=== PATIENT | female | born 1955 | race Caucasian/White ===

== ENCOUNTER → 2019-11-07 09:45 | Outpatient (CLI) | payer MEDICARE, SELFPAY ==
--- NOTE | 2019-11-07 10:19 | DI.MG.S_ITS ---
Patient Name: HELLEN KERNS date: 1955 Sex: F Attending Physician: Sloan Indications: Date: 11/07/2019 10:12 At the request of: JUDY DUBOSE Procedure: MM screening mammo implant BI BILATERAL DIGITAL SCREENING MAMMOGRAM 3D/2D WITH CAD WITH AUGMENTATION: 11/07/2019 CLINICAL: Routine screening. Comparison is made to exams dated: 05/28/2012 mammogram, 10/03/2008 mammogram, and 05/22/2004 mammogram - [facility]. The tissue of both breasts is predominantly fatty. Current study was also evaluated with a Computer Aided Detection (CAD) system. Bilateral breast implants are present. No significant masses, calcifications, or other findings are seen in either breast. There has been no significant interval change. IMPRESSION: There is no mammographic evidence of malignancy. A 1 year screening mammogram is recommended. This exam was interpreted at Station ID: [id number]. NOTE: For mammograms, a report in lay terms will be sent to the patient. Approximately 15% of breast malignancies will not be visualized mammographically. In the management of a palpable breast mass, a negative mammogram must not discourage biopsy of a clinically suspicious lesion. Electronically Signed By: Vincent Gibbs M.D., jr/myron:11/07/2019 10:32:19 letter sent: Normal Exam ACR BI-RADS Category 2: Benign Finding(s) [id number]
== END ==
PROVIDERS: PCP Internal Medicine; Referring Provider Internal Medicine; Visit Provider Internal Medicine
DX: Z12.31 Encounter for screening mammogram for malignant neoplasm of breast (principal); M85.88 Other specified disorders of bone density and structure, other site; Z78.0 Asymptomatic menopausal state
CPT/HCPCS: 77063; 77067; 77080

== ENCOUNTER 2020-05-28 10:38 | Emergency (ER) | payer MEDICARE, SELFPAY ==
[2020-05-28] VITALS (20 sets, daily range): BP systolic 144–215; BP diastolic 64–100; PULSE 62–86; RESP 10–45; TEMP 36.2; O2SAT 92–100
--- NOTE | 2020-05-28 11:01 | DI.RAD.S_ITS ---
PROCEDURE: XR CHEST 1V INDICATIONS: chest pain TECHNIQUE: One view of the chest was acquired. COMPARISON: [facility], , CHEST 1 VIEW, 07/13/2017, 16:10. FINDINGS: Surgical changes and devices: None. Lungs and pleura: Lungs are clear. No pleural effusions or pneumothorax. Mediastinum: Mediastinal contours appear normal. Heart size is normal. Bones and chest wall: No suspicious bony lesions. Overlying soft tissues appear unremarkable. IMPRESSION: No acute cardiopulmonary pathology. Dictated by: Derek Guzmna M.D. on 05/28/2020 at 11:35 Approved by: Derek Guzman M.D. on 05/28/2020 at 11:40
--- NOTE | 2020-05-28 11:02 | ED_ITS ---
HPI - Chest Pain General Chief Complaint: Hypertension Stated Complaint: 'heart issue' high blood pressure,jaw pain,anxiety Time Seen by Provider: 05/28/20 10:44 Source: patient Mode of arrival: Ambulatory Limitations: no limitations History of Present Illness HPI narrative: Patient is a 65-year-old female history of anxiety presenting with variety of complaints. She states she has had a slight headache which she describes as tightness around her head the last 3 days. She has been worried because she has taken her blood pressure 3 to 4 times a day for the last 3 days. The highest had was a systolic of 190 but it seems to be ranging around 160. She says she has done a lot of yoga meditation and drinking TS to help bring down her blood pressure and anxiety which is not seem to be helping. Her blood pressure remained elevated at home in the 160s so she came to the ED. She has very mild chest discomfort and he is having may be some right-sided weakness but also has some mild neck discomfort. She denies any fever chills or shortness of breath. Related Data Home Medications Medication Instructions Recorded Confirmed No Known Home Medications 05/28/20 05/28/20 Allergies Allergy/AdvReac Type Severity Reaction Status Date / Time ciprofloxacin [From Cipro] Allergy Unknown Verified 05/28/20 11:00 Review of Systems Review of Systems ROS Unobtainable: All systems reviewed & are unremarkable except as noted in HPI and below Constitutional Constitutional: Denies body ache(s), Denies chills, Denies fever(s), Denies frequent falls and Reports headache(s) ENT Ears, Nose, Mouth, and Throat: Reports headache(s) Cardiovascular Cardiovascular: Reports chest pain, Denies irregular heart rhythm, Denies lightheadedness, Denies palpitations, Denies dyspnea, Denies dyspnea on exertion and Denies orthopnea Respiratory Respiratory: Denies cough, Denies dyspnea, Denies dyspnea on exertion and Denies wheezing Gastrointestinal Gastrointestinal: Denies abdominal pain, Denies change in bowel habits, Denies diarrhea, Denies nausea and Denies vomiting Musculoskeletal Musculoskeletal: Denies back pain, Denies arthralgias and Denies joint swelling Integumentary/Breasts Skin/Breast: Denies pruritus, Denies erythema, Denies rash and Denies wounds Neurologic Neurologic: Denies frequent falls and Reports headache(s) Endocrine Endocrine: Denies palpitations Allergic/Immunologic Allergic/Immunologic: Denies wheezing Patient History Medical History Anxiety Heart palpitations Nephrolithiasis Social History Smoking Status: Never smoker Smoking Status: Never smoker alcohol intake frequency: 0-2 drinks per day Substance Use Type: marijuana Exam Initial Vital Signs Initial Vital Signs: Vital Signs Temperature 97.1 F L 05/28/20 10:40 Pulse Rate 75 05/28/20 10:40 Respiratory Rate 17 05/28/20 10:40 Blood Pressure 215/100 H 05/28/20 10:40 Pulse Oximetry 99 05/28/20 10:40 GENERAL: Well-appearing, well-nourished and in no acute distress. HEENT: Head atraumatic,EOMI, pupils reactive, face symmetric, moist mucous membranes CARDIOVASCULAR: Regular rate and rhythm without murmurs, rubs or gallops. RESPIRATORY: Breath sounds equal bilaterally, no wheezes rales or rhonchi. ABDOMEN: Soft, nontender. Normoactive bowel sounds all 4 quadrants. No guarding or rebound. EXTREMITIES: Normal range of motion, no clubbing or edema. Neurovascularly intact NEUROLOGICAL: Alert and oriented x4.Normal gait and speech. Cranial nerves II through XII grossly intact. Good [id number], good reru-pl-nyfn, strength equal bilaterally, no dysarthria or aphasia, sensation in tact to soft touch bilaterally, no visual changes, no facial droop SKIN: Warm, dry, no laceration, no petechiae, no rashes or lesions. Scores NIH Stroke Scale Level of Conciousness: Alert, keenly responsive Ask month/age: Answers both questions correctly. Open/close eyes, close hand: Performs both tasks correctly Best gaze horizontal: Normal Visual burt: No visual loss Facial palsy: Normal symetrical movement Left arm drift: No drift for full 10 sec Right arm drift: No drift for full 10 sec Left leg drift: No drift for full 5 sec Right leg drift: No drift for full 5 sec Limb ataxia: Absent Sensory on face/arms/legs: Normal, no sensory loss Best language: No aphasia, normal Dysarthria: Normal Extinction or inattention: No abnormality Total NIH Stroke scale score: 0 Course Orders Ordered: ED Orders 05/28/20 11:01 XR chest 1V Stat EKG-12 Lead Stat 05/28/20 11:43 CT head/brain wo con Stat 05/28/20 12:48 BNP [NT-proBNP (BNP-Adult 18+)] Stat Complete Blood Count AUTO DIFF Stat Comprehensive Metabolic Panel Stat Lipase Stat Magnesium Stat Troponin & CK Cardiac Panel Stat Vital Signs Vital signs: Vital Signs - 8 hr 05/28/20 10:40 05/28/20 10:59 05/28/20 11:00 Temperature 97.1 F L Pulse Rate 75 62 63 Respiratory Rate 17 25 H 24 Blood Pressure 215/100 H Pulse Oximetry 99 99 99 05/28/20 11:01 05/28/20 11:15 05/28/20 11:30 Temperature Pulse Rate 66 62 62 Respiratory Rate 30 H Blood Pressure 164/64 H 145/65 H Pulse Oximetry 100 99 99 05/28/20 11:35 05/28/20 11:46 05/28/20 12:00 Temperature Pulse Rate 63 64 80 Respiratory Rate Blood Pressure 191/74 H Pulse Oximetry 100 95 92 05/28/20 12:12 05/28/20 12:15 05/28/20 12:30 Temperature Pulse Rate 64 63 64 Respiratory Rate 23 10 L 37 H Blood Pressure 180/77 H 179/75 H Pulse Oximetry 100 99 99 05/28/20 12:45 05/28/20 12:53 05/28/20 13:00 Temperature Pulse Rate 86 64 62 Respiratory Rate 35 H 34 H 38 H Blood Pressure 194/77 H 177/74 H Pulse Oximetry 100 99 99 05/28/20 13:15 05/28/20 13:30 05/28/20 13:45 Temperature Pulse Rate 78 70 67 Respiratory Rate 45 H 24 30 H Blood Pressure 173/72 H 156/68 H 150/65 H Pulse Oximetry 99 99 99 05/28/20 14:00 05/28/20 14:30 Temperature Pulse Rate 74 Respiratory Rate 27 H Blood Pressure 144/65 H Pulse Oximetry 99 94 MDM - Chest Pain Lab Data Attestation: I reviewed the patient's lab results. Result diagrams: 05/28/20 12:48 05/28/20 12:48 Labs: Lab Results 05/28/20 05/28/20 Range/Units 12:48 12:48 WBC 10.4 (4.5-11.0) X10^3/uL RBC 4.86 (4.0-5.2) X10^6/uL Hgb 14.4 (12.0-16.0) g/dL Hct 44.6 (36-46) % MCV 91.7 (80-100) fL MCH 29.6 (26-34) PG MCHC 32.3 (30-36) % RDW 13.6 (11.6-14.8) % Plt Count 174 (150-400) X10^3/uL Neut % (Auto) 65.7 (50-75) % Lymph % (Auto) 22.2 L (25-40) % [place] % (Auto) 10.2 (3-14) % Eos % (Auto) 0.6 L (2-4) % Baso % (Auto) 1.3 (0-2) % Neut # (Auto) 6800 (1288-2061) /uL Lymph # (Auto) 2300 (9343-1844) /uL [place] # (Auto) 1100 H (0-900) /uL Eos # (Auto) 100 (0-450) /uL Baso # (Auto) 100 (0-100) /uL Sodium 139 (137-145) mmol/L Potassium 3.8 (3.4-5.1) mmol/L Chloride 105 (98-107) mmol/L Carbon Dioxide 28 (22-32) mmol/L BUN 19 H (7-17) mg/dL Creatinine 0.75 (0.52-1.04) mg/dL Estimated GFR > 60.0 (>60) mL/min BUN/Creatinine Ratio 25.3 H (6-22) Glucose 89 (80-110) mg/dL Calcium 9.6 (8.4-10.2) mg/dL Magnesium 2.0 (1.6-2.3) mg/dL Total Bilirubin 0.2 (0.2-1.3) mg/dL AST 32 (14-36) IU/L ALT 22 (<35) IU/L Alkaline Phosphatase 75 (38-126) U/L Total Creatine Kinase 48 (30-135) U/L CK-MB (CK-2) TNP CK-MB (CK-2) Rel Index TNP Troponin I < 0.012 (0.01-0.034) ng/mL NT-Pro-B Natriuret Pep 149 H (<125) pg/mL Total Protein 7.4 (6.3-8.2) g/dL Albumin 4.5 (3.5-5.0) g/dL Globulin 2.9 (1.7-4.1) g/dL Albumin/Globulin Ratio 1.6 (1.0-2.8) Lipase 258 (23-300) U/L Urine Dip Bedside Urine Glucose Negative Bedside Urine Bilirubin - Negative Bedside Urine Ketone - Negative Urine Specific [place] 1.010 Bedside Urine Occult Blood - Negative Bedside Urine pH 6.0 Bedside Urine Protein - Negative Bedside Urine Urobilinogen - Negative Bedside Urine Nitrite - Negative Bedside Urine Leukocytes - Negative Esterase Imaging Data CT scan - head: Radiologist's Impression: PROCEDURE: CT HEAD/BRAIN WO CON INDICATIONS: headache TECHNIQUE: Noncontrast 4.5 mm thick angled axial sections acquired from the foramen magnum to the vertex, with coronal and sagittal reformats. For radiation dose reduction, the following was used: automated exposure control, adjustment of mA and/or kV according to patient size. COMPARISON: None. FINDINGS: Image quality: Excellent. CSF spaces: Basal cisterns are patent. No extra-axial fluid collections. The ventricles are symmetric in size and shape. Brain: No acute intracranial hemorrhage or mass effect. Garcia-white matter differentiation is maintained. Skull and face: Calvarium and visualized facial bones appear intact, without suspicious lesions. Sinuses: Visualized sinuses and mastoids are clear. IMPRESSION: No acute intracranial abnormality. Dictated by: Dago Cortez M.D. on 05/28/2020 at 11:52 Chest x-ray: Radiologist's Impression: PROCEDURE: XR CHEST 1V INDICATIONS: chest pain TECHNIQUE: One view of the chest was acquired. COMPARISON: [facility], CHEST 1 VIEW, 07/13/2017, 16:10. FINDINGS: Surgical changes and devices: None. Lungs and pleura: Lungs are clear. No pleural effusions or pneumothorax. Mediastinum: Mediastinal contours appear normal. Heart size is normal. Bones and chest wall: No suspicious bony lesions. Overlying soft tissues appear unremarkable. IMPRESSION: No acute cardiopulmonary pathology. Dictated by: Derek Guzman M.D. on 05/28/2020 at 11:35 ECG Data Attestation: I personally reviewed and interpreted this ECG as follows: Prior ECG tracings: available for review Interpretation: Normal sinus rhythm rate 60 p.r. interval 126 QRS [address] changes or T-wave inversions PVC noted similar to previous EKG MDM Narrative Medical decision making narrative: Patient has variety of complaints. Blood pressure has improved significantly without any intervention. I recommend she take her blood pressure once a day. I do suspect that there is an anxiety component to all of this. She is neurologically intact head CT is negative at this time I recommend she follow up with his primary care provider in regards to blood pressure and anxiety. At this time no further recommendations from the emergency department Discharge Plan Departure Patient Disposition: Home Clinical Impression: Elevated blood pressure reading Instructions: DI for High Blood Pressure Activity Restrictions/Additional Instructions: *You have been diagnosed with elevated blood pressure *What to do: Please check her blood pressure once a day same time every day and write it down bring these numbers to your primary care provider. You may need to be started on blood pressure medication. *Continue to take medications as directed *Follow up with your primary care provider in 2-3 days *Return to ER if you should have worsening symptoms chest pain, headache, persistent vomiting, shortness of breath or any new, worsening or concerning symptoms Prescriptions: No Action No Known Home Medications RF: 0 Referrals: Ammy Lisa ARNP [Primary Care Provider] -
--- NOTE | 2020-05-28 11:43 | DI.CT.S_ITS ---
PROCEDURE: CT HEAD/BRAIN WO CON INDICATIONS: headache TECHNIQUE: Noncontrast 4.5 mm thick angled axial sections acquired from the foramen magnum to the vertex, with coronal and sagittal reformats. For radiation dose reduction, the following was used: automated exposure control, adjustment of mA and/or kV according to patient size. COMPARISON: None. FINDINGS: Image quality: Excellent. CSF spaces: Basal cisterns are patent. No extra-axial fluid collections. The ventricles are symmetric in size and shape. Brain: No acute intracranial hemorrhage or mass effect. Garcia-white matter differentiation is maintained. Skull and face: Calvarium and visualized facial bones appear intact, without suspicious lesions. Sinuses: Visualized sinuses and mastoids are clear. IMPRESSION: No acute intracranial abnormality. Dictated by: Dago Cortez M.D. on 05/28/2020 at 11:52 Approved by: Dago Cortez M.D. on 05/28/2020 at 11:55
--- NOTE | 2020-05-28 11:43 | PC.NURSE ---
2 rn have attempted (4 sticks) iv access without success.
--- NOTE | 2020-05-28 12:30 | PC.NURSE ---
lab in room attempting to obtain blood work.
[2020-05-28 13:06] LABS: Add Manual Diff / Slide Review NO; Basophils Absolute Auto 100 /uL (0-100); Basophils Percent Auto 1.3 % (0-2); Eosinophils Absolute Auto 100 /uL (0-450); Eosinophils Percent Auto 0.6 % (2-4); Hematocrit 44.6 % (36-46); Hemoglobin 14.4 g/dL (12.0-16.0); Lymphocytes Absolute Auto 2300 /uL (1100-4500); Lymphocytes Percent Auto 22.2 % (25-40); Mean Corpuscular HGB Conc 32.3 % (30-36); Mean Corpuscular Hemoglobin 29.6 PG (26-34); Mean Corpuscular Volume 91.7 fL (80-100); Monocytes Absolute Auto 1100 /uL (0-900); Monocytes Percent Auto 10.2 % (3-14); Neutrophils Absolute Auto 6800 /uL (1500-7000); Neutrophils Percent Auto 65.7 % (50-75); Red Blood Cell Count 4.86 X10^6/uL (4.0-5.2); Red Cell Distribution Width 13.6 % (11.6-14.8); White Blood Cell Count 10.4 X10^3/uL (4.5-11.0)
[2020-05-28 13:17] LABS: Alanine Aminotransferase 22 IU/L (<35); Albumin 4.5 g/dL (3.5-5.0); Albumin Globulin Ratio 1.6 (1.0-2.8); Alkaline Phosphatase 75 U/L (38-126); Aspartate Aminotransferase 32 IU/L (14-36); BUN Creatinine Ratio 25.3 (6-22); Bilirubin Total 0.2 mg/dL (0.2-1.3); Blood Urea Nitrogen 19 mg/dL (7-17); Calcium 9.6 mg/dL (8.4-10.2); Carbon Dioxide 28 mmol/L (22-32); Chloride 105 mmol/L (98-107); Creatine Kinase 48 U/L (30-135); Estimated Glomerular Filt Rate > 60.0 mL/min (>60); Globulin 2.9 g/dL (1.7-4.1); Glucose 89 mg/dL (80-110); Lipase 258 U/L (23-300); Potassium 3.8 mmol/L (3.4-5.1); Sodium 139 mmol/L (137-145); Total Protein 7.4 g/dL (6.3-8.2)
[2020-05-28 13:27] LABS: Platelet Count 174 X10^3/uL (150-400)
[2020-05-28 13:31] LABS: NT-proBNP (BNP-Adult 18+) 149 pg/mL (<125)
[2020-05-28 14:30] LABS: HEMOLYSIS 29 (0-50); Troponin I < 0.012 ng/mL (0.01-0.034)
== END 2020-05-28 15:00 | disposition home or self-care (01) ==
PROVIDERS: Emergency Provider Emergency Medicine; PCP Internal Medicine
DX: I10 Essential (primary) hypertension (principal); R07.9 Chest pain, unspecified; R51.9 Headache, unspecified; M54.2 Cervicalgia; R53.1 Weakness; F41.9 Anxiety disorder, unspecified
CPT/HCPCS: 36415; 70450; 71045; 80053; 81003; 82550; 83690; 83735; 83880; 84484; 85025; 93005; 99284

== ENCOUNTER → 2022-03-04 13:33 | Outpatient (CLI) | payer MEDICARE, SELFPAY | PROVIDERS: Family Provider Internal Medicine; PCP Internal Medicine; Referring Provider Internal Medicine; Visit Provider Internal Medicine ==

== ENCOUNTER → 2023-03-19 10:10 | Outpatient (CLI) | payer MEDICARE, SELFPAY ==
--- NOTE | 2023-03-19 | DI.RAD.S_ITS ---
Bone Density Report Name: HELLEN KERNS Age: 68 Sex: Female Ethnicity: White Date of : 1955 Indication: osteopenia; prior fracture; Referring Provider: JUDY DUBOSE Study: Bone densitometry was performed. Exam Date: March 19, 2023 Accession number: [id number] Bone Density: Region BMD T-score Z-score Classification AP Spine(L1-L4) 0.823 -2.0 0.0 Osteopenia Femoral Neck (Left) 0.657 -1.7 0.0 Osteopenia Total Hip (Left) 0.803 -1.1 0.3 Osteopenia Femoral Neck (Right) 0.687 -1.5 0.3 Osteopenia Total Hip (Right) 0.853 -0.7 0.7 Normal Total Hip Mean 0.828 -0.9 0.5 Normal World Health Organization criteria for BMD impression classify patients as: Normal (T-score at or above -1.0), Osteopenia (T-score between -1.0 and -2.5), or Osteoporosis (T-score at or below -2.5). 10-year Fracture Risk: FRAX not reported because: Prior hip or vertebral fracture Previous Exams: -- Region Exam Age BMD T-score BMD Change BMD Change Date g/cm2 vs Baseline vs Previous -- AP Spine (L1-L4) 03/19/2023 68 0.823 -2.0 -0.037 (-4.3%)# -0.037 (-4.3%)# 11/07/2019 64 0.860 -1.7 Total Hip(Left) 03/19/2023 68 0.803 -1.1 -0.013 (-1.6%)# -0.013 (-1.6%)# 11/07/2019 64 0.816 -1.0 Total Hip(Right) 03/19/2023 68 0.853 -0.7 0.022 (2.7%)# 0.022 (2.7%)# 11/07/2019 64 0.831 -0.9 -- *Denotes significance at 95% confidence level, LSC for AP Spine = 0.022 g/cm2, LSC for Total Hip = 0.027 g/cm2 # Denotes dissimilar scan types or analysis methods Impression: The patient has low bone mass, based on the Total Spine T-score. The patient has risk factors, including: previous fracture. No significant bone loss was observed. Discussion: INCREASED RISK OF FRACTURE DUE TO HISTORY OF FRACTURE. The patient's previous fracture puts the patient at high risk of a future fracture. In untreated patients, the risk of osteoporotic fracture increases approximately two-fold for each 1.0 SD decrease in T-score. Low bone density is not the only risk factor for fracture; also consider factors such as patient's age, frailty or poor health, risk of falling, risk of injury, previous osteoporotic fracture, family history of osteoporosis, cigarette smoking, low body weight, etc. Not everyone with a low trauma fracture has osteoporosis; osteomalacia and other metabolic bone disorders should also be considered. Patients who have osteoporosis should be evaluated for specific diseases and conditions (secondary causes) that may cause or contribute to bone loss and fracture risk. National Osteoporosis Foundation (NOF) recommends pharmacologic intervention for patients with a prior hip or vertebral fracture regardless of BMD T-score. The patient should follow a healthful lifestyle (good nutrition with adequate calcium and vitamin D, and appropriate weight-bearing exercise). Follow-Up: Consider a repeat BMD and Vertebral Fracture Assessment (VFA) exam in 2 years or sooner if medically necessary, to reassess this patient's status. Reported by: [facility] CHANTE DIALLO M.D. on 03/19/2023 10:41:00 AM.
== END ==
PROVIDERS: Family Provider Internal Medicine; PCP Internal Medicine; Referring Provider Internal Medicine; Visit Provider Internal Medicine
DX: Z78.0 Asymptomatic menopausal state (principal); M85.88 Other specified disorders of bone density and structure, other site
CPT/HCPCS: 77080

== ENCOUNTER → 2023-07-07 08:09 | Outpatient (CLI) | payer MEDICARE, SELFPAY ==
--- NOTE | 2023-07-07 08:10 | DI.MG.S_ITS ---
BILATERAL DIGITAL SCREENING MAMMOGRAM 3D/2D WITH CAD WITH AUGMENTATION: 07/07/2023 CLINICAL: Routine screening. Comparison is made to exams dated: 11/07/2019 mammogram - [facility], 05/28/2012 mammogram, and 10/03/2008 mammogram - [facility]. There are scattered areas of fibroglandular density in both breasts (category b / 25%-50% glandular tissue). Current study was also evaluated with a Computer Aided Detection (CAD) system. Bilateral breast implants are intact. No significant masses, calcifications, or other findings are seen in either breast. There has been no significant interval change. IMPRESSION: BENIGN There is no mammographic evidence of malignancy. A 1 year screening mammogram is recommended. Based on the Tyrer Cuzick model (a risk assessment model) the patient's lifetime risk is 5.7% and her 10 year risk is 3.4%. According to the ACR, ACS, and NCCN guidelines, an annual breast MRI exam along with mammogram is recommended if the patient's lifetime risk is 20% or greater. This exam was interpreted at Station ID: [id number]. NOTE: For mammograms, a report in lay terms will be sent to the patient. Approximately 15% of breast malignancies will not be visualized mammographically. In the management of a palpable breast mass, a negative mammogram must not discourage biopsy of a clinically suspicious lesion. Electronically Signed By: Sharri Ellis M.D., PH.D eb/:07/07/2023 14:52:25 letter sent: Normal Exam ACR BI-RADS Category 2: Benign Finding(s) 3342F
== END ==
LOC: MAMMO 08:10
PROVIDERS: Family Provider Internal Medicine; PCP Internal Medicine; Referring Provider Internal Medicine; Visit Provider Internal Medicine
DX: Z12.31 Encounter for screening mammogram for malignant neoplasm of breast (principal); R92.323 Mammographic fibroglandular density, bilateral breasts
CPT/HCPCS: 77063; 77067

== ENCOUNTER 2023-11-24 09:59 | Emergency (ER) | payer MEDICARE, SELFPAY ==
[2023-11-24 10:07] VITALS: BP 184/75; PULSE 65; RESP 14; TEMP 36.9; O2SAT 99; BMI 23.9
--- NOTE | 2023-11-24 10:07 | DI.RAD.S_ITS ---
PROCEDURE: XR CHEST 1V INDICATIONS: chest pain TECHNIQUE: One view of the chest was acquired. COMPARISON: [facility], CR, XR CHEST 1V, 05/28/2020, 11:15. FINDINGS: Surgical changes and devices: None. Lungs and pleura: Lungs are clear. No pleural effusions or pneumothorax. Mediastinum: Mediastinal contours appear normal. Heart size is normal. Bones and chest wall: No suspicious bony lesions. Overlying soft tissues appear unremarkable. IMPRESSION: No acute cardiopulmonary abnormality is seen. Dictated by: Isa Perez MD, PhD on 11/24/2023 at 10:43 Approved by: Isa Perez MD, PhD on 11/24/2023 at 10:44
--- NOTE | 2023-11-24 10:15 | EKG_ITS ---
[place] [address] [place] [id number] Test Date: 2023-11-24 Pat Name: Pippa Kruger Department: [facility] Room: Gender: Female Tailer In: KATHARINE : 1955 Requested By: Order Number: [id number] Reading MD: Phillip Samaniego Measurements Intervals [place] Rate: 58 P: 65 ND: 136 QRS: 59 QRSD: 82 T: 39 QT: 390 QTc: 382 Interpretive Statements Sinus bradycardia Minimal voltage criteria for LVH, may be normal variant ( Sokolow-Mejía ) Electronically Signed On 11-26-2023 7:34:43 PDT by Phillip Samaniego
[2023-11-24 10:22] LABS: Add Manual Diff / Slide Review NO; Basophils Absolute Auto 100 /uL (0-100); Eosinophils Absolute Auto 100 /uL (0-450); Eosinophils Percent Auto 0.9 % (2-4); Hemoglobin 14.5 g/dL (12.0-16.0); Lymphocytes Absolute Auto 2400 /uL (1100-4500); Lymphocytes Percent Auto 28.3 % (25-40); Mean Corpuscular HGB Conc 32.9 % (30-36); Mean Corpuscular Hemoglobin 30.4 PG (26-34); Mean Corpuscular Volume 92.3 fL (80-100); Monocytes Absolute Auto 1000 /uL (0-900); Monocytes Percent Auto 11.9 % (3-14); Neutrophils Absolute Auto 4900 /uL (1500-7000); Neutrophils Percent Auto 57.9 % (50-75); Platelet Count 228 X10^3/uL (150-400); Red Blood Cell Count 4.77 X10^6/uL (4.0-5.2); Red Cell Distribution Width 14.1 % (11.6-14.8); White Blood Cell Count 8.4 X10^3/uL (4.5-11.0)
[2023-11-24 10:35] LABS: Prothrombin Time 11.3 SECONDS (9.4-12.5)
[2023-11-24 10:38] LABS: PTT Partial Thromboplastin Tim 32 SECONDS (25.1-36.5)
[2023-11-24 10:39] LABS: Alanine Aminotransferase 18 IU/L (<35); Albumin 4.4 g/dL (3.5-5.0); Albumin Globulin Ratio 1.6 (1.0-2.8); Alkaline Phosphatase 67 U/L (38-126); Aspartate Aminotransferase 27 IU/L (14-36); BUN Creatinine Ratio 22.2 (6-22); Bilirubin Total 0.6 mg/dL (0.2-1.3); Blood Urea Nitrogen 14 mg/dL (7-17); Calcium 8.9 mg/dL (8.4-10.2); Carbon Dioxide 22 mmol/L (22-32); Chloride 108 mmol/L (98-107); Creatine Kinase 48 U/L (30-135); Estimated Glomerular Filt Rate > 60 mL/min (>60); Globulin 2.8 g/dL (1.7-4.1); Glucose 120 mg/dL (80-110); HEMOLYSIS 16 (0-50); Lipase 126 U/L (23-300); Magnesium 2.1 mg/dL (1.6-2.3); Potassium 4.4 mmol/L (3.4-5.1); Sodium 136 mmol/L (137-145); Total Protein 7.2 g/dL (6.3-8.2)
[2023-11-24 10:50] LABS: NT-proBNP (BNP-Adult 18+) 320 pg/mL (<125); Troponin I < 0.012 ng/mL (0.01-0.034)
[2023-11-24 13:08] LABS: Troponin I < 0.012 ng/mL (0.01-0.034)
[2023-11-24 13:16] VITALS: PULSE 67; O2SAT 99
[2023-11-24 13:17] VITALS: BP 187/74; PULSE 63; O2SAT 100
[2023-11-24 13:30] VITALS: PULSE 57; RESP 12; O2SAT 100
[2023-11-24 13:31] VITALS: BP 172/72; PULSE 62; RESP 16; O2SAT 100
--- NOTE | 2023-11-24 13:49 | ED.CHESTPAIN ---
HPI - Chest Pain General Chief Complaint: Chest Pain Stated Complaint: heart attack symptoms sent by dr Reynoso Seen by Provider: 11/24/23 13:16 Source: patient Mode of arrival: Ambulatory Limitations: no limitations History of Present Illness HPI narrative: 68-year-old female with no reported past medical history presents for 2 episodes of tightness across her back and occasional twinging pain in her chest. Patient states that she had her has been rub her back but this did not relieve her symptoms. She reports a family history of heart disease and concerned that she may be having a cardiac event. She took 2 baby aspirins prior to arrival. Patient states that she is very active and otherwise healthy. She has noticed over the last several weeks to months that her exercise tolerance has gone down because she will feel fatigued. Denies shortness of breath, chest pressure, nausea, other complaints at this time. She has never seen a pulmonary fellow. Related Data Home Medications Medication Instructions Recorded Confirmed No Known Home Medications 05/28/20 05/28/20 Allergies Allergy/AdvReac Type Severity Reaction Status Date / Time ciprofloxacin [From Cipro] Allergy Unknown Verified 11/24/23 10:07 Patient History Medical History Anxiety Heart palpitations Nephrolithiasis Social History Smoking Status: Never smoker Smoking Status: Never smoker alcohol intake frequency: 0-2 drinks per day Substance Use Type: marijuana Exam Initial Vital Signs Initial Vital Signs: Vital Signs Temperature 98.4 F 11/24/23 10:07 Pulse Rate 65 11/24/23 10:07 Respiratory Rate 14 11/24/23 10:07 Blood Pressure 184/75 H 11/24/23 10:07 Pulse Oximetry 99 11/24/23 10:07 Oxygen Delivery Method Room Air 11/24/23 10:07 Const: Awake, alert, no acute distress, nontoxic appearing Cardiac: regular rate, regular rhythm RESP: unlabored, clear bilaterally, no wheezing GI: Soft, nontender, nondistended, no rebound, no guarding MSK: Atraumatic, full range of motion, pulses equal Skin: Warm, Dry, intact, no rashes Neuro: AO x3, CN II-XII grossly intact, moves all extremities Course Orders Ordered: Discontinued Medications Aspirin (Aspirin 81 Mg Chew Tab) 324 mg PO NOW ONE Stop: 11/24/23 10:08 Last Admin: 11/24/23 13:49 Dose: Not Given Documented By: [facility] Vital Signs Vital signs: Vital Signs - 8 hr 11/24/23 10:07 Temperature 98.4 F Pulse Rate 65 Respiratory Rate 14 Blood Pressure 184/75 H Pulse Oximetry 99 Oxygen Delivery Method Room Air MDM - Chest Pain Differential Diagnosis Differential diagnosis: Likely unstable angina pectoris, atypical chest pain and costochondritis Lab Data 11/24/23 10:13 11/24/23 10:13 Labs: Lab Results 11/24/23 11/24/23 Range/Units 10:13 12:27 WBC 8.4 (4.5-11.0) X10^3/uL RBC 4.77 (4.0-5.2) X10^6/uL Hgb 14.5 (12.0-16.0) g/dL Hct 44.0 (36-46) % MCV 92.3 (80-100) fL MCH 30.4 (26-34) PG MCHC 32.9 (30-36) % RDW 14.1 (11.6-14.8) % Plt Count 228 (150-400) X10^3/uL Neut % (Auto) 57.9 (50-75) % Lymph % (Auto) 28.3 (25-40) % Upson % (Auto) 11.9 (3-14) % Eos % (Auto) 0.9 L (2-4) % Baso % (Auto) 1.0 (0-2) % Neut # (Auto) 4900 (1235-5227) /uL Lymph # (Auto) 2400 (9747-2390) /uL Upson # (Auto) 1000 H (0-900) /uL Eos # (Auto) 100 (0-450) /uL Baso # (Auto) 100 (0-100) /uL PT 11.3 (9.4-12.5) SECONDS INR 1.0 (0.9-1.3) APTT 32 (25.1-36.5) SECONDS Sodium 136 L (137-145) mmol/L Potassium 4.4 (3.4-5.1) mmol/L Chloride 108 H (98-107) mmol/L Carbon Dioxide 22 (22-32) mmol/L BUN 14 (7-17) mg/dL Creatinine 0.63 (0.52-1.04) mg/dL Estimated GFR > 60 (>60) mL/min BUN/Creatinine Ratio 22.2 H (6-22) Glucose 120 H (80-110) mg/dL Calcium 8.9 (8.4-10.2) mg/dL Magnesium 2.1 (1.6-2.3) mg/dL Total Bilirubin 0.6 (0.2-1.3) mg/dL AST 27 (14-36) IU/L ALT 18 (<35) IU/L Alkaline Phosphatase 67 (38-126) U/L Total Creatine Kinase 48 (30-135) U/L Troponin I < 0.012 < 0.012 (0.01-0.034) ng/mL NT-Pro-B Natriuret Pep 320 H (<125) pg/mL Total Protein 7.2 (6.3-8.2) g/dL Albumin 4.4 (3.5-5.0) g/dL Globulin 2.8 (1.7-4.1) g/dL Albumin/Globulin Ratio 1.6 (1.0-2.8) Lipase 126 (23-300) U/L Imaging Data Chest x-ray: Radiologist's Impression: PROCEDURE: XR CHEST 1V INDICATIONS: chest pain TECHNIQUE: One view of the chest was acquired. COMPARISON: [facility], , XR CHEST 1V, 05/28/2020, 11:15. FINDINGS: Surgical changes and devices: None. Lungs and pleura: Lungs are clear. No pleural effusions or pneumothorax. Mediastinum: Mediastinal contours appear normal. Heart size is normal. Bones and chest wall: No suspicious bony lesions. Overlying soft tissues appear unremarkable. IMPRESSION: No acute cardiopulmonary abnormality is seen. Dictated by: Isa Perez MD, PhD on 11/24/2023 at 10:43 Approved by: Isa Perez MD, PhD on 11/24/2023 at 10:44 ECG Data Interpretation: EKG sinus bradycardia at 56 beats per minute. Normal IN, no ST T wave changes, no STEMI MDM Narrative Medical decision making narrative: Well-appearing patient with intermittent symptoms since last night. Physical exam is unremarkable. Patient does report worsening exercise tolerance due to fatigue, however this is only when she exerts herself. Laboratory work is reviewed, no significant abnormalities identified. Electrolytes within normal limits, troponin undetectable, EKG sinus bradycardia without acute ischemic findings. Chest x-ray negative for acute process. Patient informed of all lab and imaging findings. I do recommend cardiology follow up based on patient's age and reported family history of coronary disease. Referral provided. Discharge Plan Departure Patient Disposition: Home Clinical Impression: Atypical chest pain Instructions: DI for Chest Pain Activity Restrictions/Additional Instructions: Your labs and imaging today were normal. Your X ray did not show any abnormalities. With your family history I highly recommend that you follow up with a pulmonary fellow. If your symptoms return or worsen please return to the emergency department for repeat evaluation. Prescriptions: No Action No Known Home Medications Referrals: Mellisa Arvizu DO [Physician] - Ammy Lisa ARNP [Primary Care Provider] - Stand Alone Forms: Patient Portal/API
== END 2023-11-24 14:00 | disposition home or self-care (01) ==
PROVIDERS: Emergency Provider Emergency Medicine; Family Provider Internal Medicine; PCP Internal Medicine
DX: R07.89 Other chest pain (principal)
CPT/HCPCS: 36415; 71045; 80053; 82550; 83690; 83735; 83880; 84484; 85025; 85610; 85730; 93005; 99283; 99284

== ENCOUNTER → 2024-02-11 07:07 | Outpatient (CLI) | payer MEDICARE, SELFPAY ==
--- NOTE | 2024-02-11 07:08 | DI.ECHO.S_ITS ---
[facility] : : [address] : : [place] : : [id number] : : Phone: [phone] Echocardiogram Report + + :Name: HELLEN KERNS Study Date: 02/11/2024 Height: 63 in : :[facility] ReadingLocation: Weight: 135 lb : : Gender: Female BSA: 1.6 m2 : :: 1955 Age: 69 yrs BP: 149/70 mmHg: :Reason For Study: CHEST PAIN : :Ordering Physician: SEDRICK, : :JUDY Performed By: Keli Butler : :Referring: JUDY DUBOSE : + + Interpretation Summary 1. The left ventricular contractility is normal. Estimate ejection fraction is greater than 55% with no segmental wall motion abnormalities. No LVH. Unable to comment diastolic function. 2. The right ventricular contractility is normal. 3. Mild left atrial lodgment. All other cardiac chambers are of normal size. 4. Trace to mild mitral regurgitation 5. Trace to mild tricuspid regurgitation with estimated pulmonary systolic artery pressures of 30 mmHg. 6. No obvious intracardiac shunts. 7. Obvious intracardiac masses nor thrombi. 8. No hemodynamically significant pericardial effusion. 9. Low right-sided filling pressures. Conclusion: Normal biventricular systolic function with no significant valvular abnormalities. Procedure: A two-dimensional transthoracic echocardiogram with color flow and Doppler was performed. The study quality was technically adequate. Comparison is made with the echocardiogram of 03/10/2011. The patient was in sinus bradycardia with heart rates between 50-55 bpm during the exam. Left Ventricle: The left ventricle is normal in size and wall thickness. The ejection fraction is estimated to be 60-65%. Right Ventricle: The right ventricle is normal in size and function. Atria: The left atrium is mildly dilated. Right atrial size is normal. There is no Doppler evidence for an interatrial shunt. Mitral Valve: The mitral valve is normal in structure and function. There is mild mitral regurgitation. Aortic Valve: The aortic valve is trileaflet. The aortic valve opens well. There is no aortic valve stenosis. No aortic regurgitation is present. Tricuspid Valve: The tricuspid valve is normal in structure and function. There is mild tricuspid regurgitation. The right ventricular systolic pressure is estimated to be at least 30 mmHg based on an estimated right atrial pressure of 3 mm Hg. Pulmonic Valve: The pulmonic valve leaflets are thin and pliable; valve motion is normal. There is no pulmonic valvular regurgitation. Great Vessels: The aortic root is normal size. The dimensions of the ascending aorta are normal. The IVC is of normal diameter and collapses greater than 50% with a sniff. This suggests a low right atrial pressure of 3 mm Hg. Pericardium/ Pleura There is no pericardial effusion. There is no pleural effusion. MMode/2D Measurements & Calculations LVIDd: 4.9 cm LVOT diam: 1.8 cm LVIDs: 3.3 cm Ao root diam: 3.0 cm FS: 32.6 % asc Aorta Diam: 2.8 cm IVSd: 0.90 cm Ao Arch Diam (Prox Trans): 2.1 cm LVPWd: 0.60 cm LV simon. diameter/BSA (cm/m^2): 3.0 LV sys. diameter/BSA (cm/m^2): 2.0 LA A2 area: 21.1 cm2 RA long axis: 5.0 cm LA A4 area: 20.1 cm2 RA area: 15.9 cm2 LA length (vol): 5.2 cm RA vol: 42.7 ml LA vol: 69.2 ml RA : 26.1 ml/m2 LA vol index: 42.3 ml/m2 IVC diam: 1.5 cm RVD1 (basal): 3.6 cm RVD2 (mid): 2.7 cm TAPSE: 2.2 cm Doppler Measurements & Calculations Ao V2 max: 125.2 cm/sec LVOT Max Rashad: 77.6 cm/sec Ao V2 mean: 83.3 cm/sec LV V1 max P.4 mmHg Ao max P.3 mmHg LV V1 VTI: 18.6 cm Ao mean P.2 mmHg ANUEL(I,D): 1.6 cm2 Ao V2 VTI: 29.8 cm ANUEL(V,D): 1.6 cm2 sev ratio: 0.62 ANUEL indexed to BSA (cm^2/m^2): 0.98 MV E max rashad: 76.5 cm/sec TR max rashad: 258.5 cm/sec MV A max rashad: 70.4 cm/sec TR max P.7 mmHg MV E/A: 1.1 PA V2 max: 76.8 cm/sec Med Peak E' Rashad: 6.3 cm/sec PA V2 mean: 52.7 cm/sec E/E' med: 12.1 PA mean P.3 mmHg Lat Peak E' Rashad: 8.8 cm/sec PA pr(Accel): 24.2 mmHg E/E' lat: 8.7 E/e' average: 10.4 MV dec time: 0.16 sec SV(LVOT): 47.9 ml Reading Physician:
== END ==
PROVIDERS: Family Provider Internal Medicine; PCP Internal Medicine; Referring Provider Internal Medicine; Visit Provider Internal Medicine
DX: R07.9 Chest pain, unspecified (principal); R79.89 Other specified abnormal findings of blood chemistry; I08.1 Rheumatic disorders of both mitral and tricuspid valves
CPT/HCPCS: 93306